=== PATIENT | male | born 2000 | race Two or more races ===

== ENCOUNTER 2023-02-26 17:53 | Emergency (ER) | payer MEDICAID, OTHER ==
[~2023-02-26] VITALS: Ht 170.2 cm; Wt 91.1 kg
[2023-02-26 18:13] VITALS: BP 113/65; PULSE 87; RESP 16; TEMP 98.2; O2SAT 98
[2023-02-26 21:14] LABS: Amphetamine Screen, Urine Neg (NEGATIVE)
[2023-02-26 21:15] LABS: Barbiturate Scree,Urine Neg (NEGATIVE); Benzodiazephine Screen, Urine Neg (NEGATIVE); Cannabinoid Screen, Urine Neg (NEGATIVE); Cocaine Screen, Urine Neg (NEGATIVE); Opiate Scree,Urine Neg (NEGATIVE); Phencyclidine Screen, Urine Neg (NEGATIVE)
[2023-02-26] MEDS ORDERED: IBUP1TAB5 PO (21:42)
[2023-02-26] MEDS ORDERED: MUPI2OIN2 EX (21:42)
[2023-02-26] MEDS ORDERED: NEOMYCIN-BACITRACIN-POLYM UNITDOSE PKG TOP OINT TOP ONE (21:45)
[2023-02-26] MEDS ORDERED: TETANUS-DIPTH-ACEL PERTUSSIS 0.5ML SYR Tdap IM ONE (21:45)
== END 2023-02-26 22:10 | disposition home or self-care (01) ==
LOC: ER 17:53
DX: S63.502A Unspecified sprain of left wrist, initial encounter (principal); Z79.1 Long term (current) use of non-steroidal anti-inflammatories (NSAID); Z79.899 Other long term (current) drug therapy; X58.XXXA Exposure to other specified factors, initial encounter; Y93.89 Activity, other specified; Y92.89 Other specified places as the place of occurrence of the external cause; Y99.8 Other external cause status
CPT/HCPCS: 73130; 80307